=== PATIENT | male | born 1975 | race Caucasian/White ===

== ENCOUNTER → 2021-03-25 15:26 | Outpatient (BNVA) | payer OTHER, SELFPAY | PROVIDERS: Visit Provider Orthopaedic Surgery | DX: M19.012 Primary osteoarthritis, left shoulder (principal) | CPT/HCPCS: 73030 ==

== ENCOUNTER → 2021-10-23 15:25 | Outpatient (BNVA) | payer OTHER, SELFPAY | PROVIDERS: Visit Provider Orthopaedic Surgery | DX: M54.2 Cervicalgia (principal); M19.011 Primary osteoarthritis, right shoulder; M47.22 Other spondylosis with radiculopathy, cervical region | CPT/HCPCS: 72050 ==

== ENCOUNTER 2021-11-20 07:04 | Outpatient (CLI) | payer OTHER, SELFPAY ==
--- NOTE | 2021-11-20 07:15 | MR_ITS ---
WS: [id number] MRI CERVICAL SPINE NONCONTRAST TECHNIQUE: Sagittal T1, T2 and STIR imaging. Axial T2, gradient, and fiesta imaging. CLINICAL INFORMATION: neck pain COMPARISON: None. FINDINGS: Straightening of the normal cervical lordosis. Cord signal is normal. No high-grade central canal kimmy rowing. C2-C3: Moderate LEFT bony foraminal narrowing. Spinal canal is patent. RIGHT foramen is patent. Mild facet arthropathy. Mild disc osteophyte complex eccentric to the LEFT. C3-C4: Mild RIGHT bony foraminal narrowing. Mild facet arthropathy. Spinal canal is patent. C4-C5: Disc osteophytic ridging. Moderate to severe RIGHT and mild LEFT bony foraminal narrowing. Mod erate facet arthropathy. Spinal canal is patent. C5-C6: Disc osteophytic ridging eccentric to the LEFT. Severe LEFT greater than RIGHT bony foraminal narrowing. Moderate facet arthropathy. Mild central canal stenosis. C6-C7: Disc osteophyte complex with endplate ridging. Severe LEFT greater than RIGHT bony foraminal n arrowing. Mild facet arthropathy. Mild central canal stenosis. C7-T1: Mild LEFT and no significant RIGHT foraminal narrowing. Spinal canal is patent. Mild facet art hropathy. Visualized brain stem structures: Normal. Prevertebral soft tissues: Normal. MR/MR cervical spin wo con* [id number] IMPRESSION: 1. Straightening of the normal cervical lordosis. Cord signal is normal. 2. Mild central canal stenosis C5-C6 and C6-C7 due to disc osteophyte complexe s with shallow disc osteophyte protrusions 3. Severe bony foraminal narrowing RIGHT C4-C5, bilateral C5-C6 worse in the L EFT, and bilateral C6-C7 worse in the LEFT. 4. Moderate facet arthropathy C4-C6.
== END 2021-11-20 07:05 | disposition home or self-care (01) ==
LOC: RAD 07:05
PROVIDERS: Visit Provider Orthopaedic Surgery
DX: M47.22 Other spondylosis with radiculopathy, cervical region (principal)
CPT/HCPCS: 72141

== ENCOUNTER 2022-03-11 12:30 | Emergency (ER) | payer OTHER, SELFPAY ==
[2022-03-11 12:35] VITALS: BP 173/117; PULSE 111; RESP 18; TEMP 36.8; O2SAT 95; BMI 28.1
--- NOTE | 2022-03-11 12:40 | ED_ITS ---
HPI - General Adult General: Chief complaint: Abdominal Pain Stated complaint: Abd pain Time Seen by Provider: 03/11/22 12:39 History of Present Illness: Patient is a 46-year-old male with history hypertension who presents emergency room for concerns of lower abdominal pain nausea vomiting and diarrhea since Wednesday. Patient tells me that since Wednesday he has had significant episodes of diarrhea every few minutes. Patient reports liquid stool occasionally dark. Patient denies any melena medic easier. Patient has any urinary complaints or any history of renal colic. Patient de nies any prior abdominal surgery. Patient has me that he has not been able to hold anything down the last few days.. Denies fever but reports chills. Denies any cough, runny nose, sore throat, chest pain, shortness breath palpitation or lightheadedness. He denies any recent antibiotic use, recent travel, or any sick contacts. Onset: 2 days ago Duration:2 days Location: home Severity:moderate Associated symptoms: Reports malaise, nausea and vomiting; Deny chest pain, dyspnea, rash or palpitations Review of Systems Const: Reports: chills and malaise; Denies: fever(s) Eyes: Denies: change in vision ENMT: Denies: mouth pain Card: Denies: chest pain or palpitations Resp: Denies: dyspnea or non-productive cough GI: Reports: abdominal pain (+lower abd pain), nausea, vomiting and diarrhea : Denies: dysuria Musc: Denies: extremity pain Skin/Breast: Denies: rash or new lesions Neuro: Denies: weakness in extremities Psych: Reports: other (Normal mood) Landon/Lymph: Denies: easy bruising [facility] ED PFSH: Medical History (Updated 03/11/22 @ 12:57 by Gris Acuna MD) Hypertension Social History (Updated 03/11/22 @ 12:57 by Gris Acuna MD) Smoking and tobacco status: former smoker Alcohol intake: never Substance/Drug Use: never Marital status: Physical Exam Const: COMMON NORMALS: alert HENMT: COMMON NORMALS: atraumatic HEAD & SCALP: atraumatic MOUTH: moist mucous membranes abnormal Eye: COMMON NORMALS: EOMs intact bilaterally and conjunctivae normal CONJUNCTIVA: Yes conjunctivae normal Neck/C-Spine: COMMON NORMALS: full ROM and supple Resp: COMMON NORMALS: normal respiratory effort and clear to auscultation bilaterally AUSCULTATION: clear to auscultation bilaterally Cardio: RATE: tachycardic GI: COMMON NORMALS: Soft to palpation PALPATION: Yes Soft to palpation OTHER: +mild hypogastric area focal TTP. NO guarding rebound, guarding, rigidity. No CVA tenderness to percussion. Neg Conde/Neg McBurney's point tenderness, no suprabupic tenderness to palpation. Extremity: COMMON NORMALS: full ROM Neuro: SENSORIUM/ORIENTATION: Yes alert MOTOR EXAM: No Abnormal motor strength present and Other motor observations present (no focal motor deficits) Psych: COMMON NORMALS: speech normal SPEECH: Yes normal speech MOOD & AFFECT: Yes euthymic mood Course Vital Signs: Vital signs: Vital Signs Temperature 98.2 F 03/11/22 12:35 Pulse Rate 93 03/11/22 17:37 Respiratory Rate 20 H 03/11/22 17:39 Blood Pressure 135/102 03/11/22 17:00 Pulse Oximetry 94 03/11/22 17:39 Oxygen Delivery Me thod 03/11/22 12:35 MDM - General Adult Medical Decision Making Patient is a 46-year-old male with history hypertension who presents emergency room for concerns of lower abdominal pain nausea vomiting and diarrhea since Wednesday. On exam, patient is noted to mildly tachycardic to the low 100s. Patient is otherwise hemodynamically stable. Patient is noted to have dry mucous membrane with mild lower abdominal tenderness palpation. No guarding or rebound tenderness. Lab work-up showed white count of 7.8. Lab within normal limit. Patient is found to have a mucoid stool that is Hemoccult positive. Patient received IVF reports feeling symptomatically improved. At the present time given hx of diarrhe and abd pain, I have no suspicion for other acute intra-abdominal pathology including SBO, biliary pathology, appendicitis, div erticulitis, or other emergent condition requiring surgery. Patient received ciprofloxacin in the ER given concerns for bacterial causes of diarrhea. Patient will be discharged home on ciprofloxacin. Rx tylenol PRN abd pain, maalox/pepcid PRN dyspepsia, and zofran PRN nausea/vomiting, ciprofloxacin for possible colitis Disposition: Discharge. Patient counseled regarding diagnostic impression, treatment plan. Patient given ED strict return precautions to return for continuation, worsening, or development of new symptoms. Instructed to f/u w/ PCP regarding symptoms today. Patient verbalized understanding. Lab Data : 03/11/22 12:50 03/11/22 14:19 Laboratory Results WBC 7.8 10^3/uL (4.0-10.0) 03/11/22 12:50 RBC 5.05 10^6/uL (4.1-5.3) 03/11/22 12:50 Hgb 16.1 g/dL (11.7-16.6) 03/11/22 12:50 Hct 45.2 % (42.0-52.0) 03/11/22 12:50 MCV 89.5 fl (80-94) 03/11/22 12:50 MCH 31.9 pg (28.0-34.0) 03/11/22 12:50 MCHC 35.6 g/dL (30.0-36.0) 03/11/22 12:50 RDW 12.0 % (12.1-15.1) L 03/11/22 12:50 Plt Count 157 10^3/cmm (130-400) 03/11/22 12:50 MPV 11.3 fL (7.4-10.4) H 03/11/22 12:50 Total Counted 100 (0-100) 03/11/22 12:50 Atypical Lymphs % 1.0 % (0-5) 03/11/22 12:50 Absolute Neutrophils 5.7 10^3/cmm (1.4-6.5) 03/11/22 12:50 Segmented Neutrophils 62 % 03/11/22 12:50 Abs Segm Neuts (Man) 4.8 10/cmm (1.6-7.1) 03/11/22 12:50 Band Neutrophils 11.0 % 03/11/22 12:50 Abs Band Neuts (Man) 0.9 10^3/cmm (0.0-1.2) 03/11/22 12:50 Absolute Lymphocytes 1.6 10^3/cmm (1.2-3.4) 03/11/22 12:50 Lymphocytes (Manual) 19 % 03/11/22 12:50 Monocytes (Manual) 6.0 % 03/11/22 12:50 Absolute Monocytes 0.5 10^3/cmm (0.1-0.6) 03/11/22 12:50 Eosinophils (Manual) 1 % 03/11/22 12:50 Absolute Eosinophils 0.0 10^3/cmm (0.0-0.7) 03/11/22 12:50 Basophils (Manual) 0.0 % 03/11/22 12:50 Absolute Basophils 0.0 10^3/cmm (0.0-0.2) 03/11/22 12:50 Platelet Estimate Normal (Normal) 03/11/22 12:50 Sodium 133 mmol/L (136-145) L 03/11/22 14:19 Potassium 3.5 mmol/L (3.5-5.1) 03/11/22 14:19 Chloride 97 mmol/L (98-107) L 03/11/22 14:19 Carbon Dioxide 23 mmol/L (22-29) 03/11/22 14:19 Anion Gap 16.5 (5-19) 03/11/22 14:19 BUN 10 mg/dL (6-20) 03/11/22 14:19 Creatinine 0.7 mg/dL (0.7-1.2) 03/11/22 14:19 GFR Calculation 120.4 mL/min (90-130) 03/11/22 14:19 Glucose 292 mg/dL (65-115) H 03/11/22 14:19 Calculated Osmolality 286 mOsm/kg (285-295) 03/11/22 14:19 Calcium 8.3 mg/dL (8.5-10.5) L 03/11/22 14:19 Total Bilirubin 1.2 mg/dL (0.15-1.2) 03/11/22 14:19 AST 11 U/L (0-40) 03/11/22 14:19 ALT 14 U/L (0-41) 03/11/22 14:19 Alkaline Phosphatase 76 U/L (40-130) 03/11/22 14:19 Total Protein 6.2 g/dL (6.6-8.7) L 03/11/22 14:19 Albumin 3.7 g/dL (3.5-5.2) 03/11/22 14:19 Globulin 2.5 g/dL (1.3-4.6) 03/11/22 14:19 Lipase 32 U/L (13-60) 03/11/22 14:19 Urine Color Yellow (Yellow) 03/11/22 13:26 Urine Appearance Clear (CLEAR) 03/11/22 13:26 Urine pH 5 (5-7) 03/11/22 13:26 Ur Specific [place] 1.010 (1.005-1.030) 03/11/22 13:26 Urine Protein Trace (Negative) 03/11/22 13:26 Urine Glucose (UA) 4+ (Normal) H 03/11/22 13:26 Urine Ketones 1+ (Negative) H 03/11/22 13:26 Urine Blood Trace (Negative) H 03/11/22 13:26 Urine Nitrate Negative (Negative) 03/11/22 13:26 Urine Bilirubin Neg (Negative) 03/11/22 13:26 Urine Urobilinogen Norm mg/dL (Negative) 03/11/22 13:26 Ur Leukocyte Esterase Negative (Negative) 03/11/22 13:26 Urine RBC None /hpf (0-2) 03/11/22 13:26 Urine WBC 5-10 /hpf (0-5) H 03/11/22 13:26 Ur Squamous Epith Cells None /hpf (0-5) 03/11/22 13:26 Amorphous Sediment Not Reportable 03/11/22 13:26 Urine Bacteria Trace /hpf (NONE) 03/11/22 13:26 Discharge Plan Discharge Patient Disposition: Home Clinical Impression: Abdominal pain, Diarrhea, Nausea & vomiting Condition: Stable Prescriptions: New acetaminophen 500 mg tablet 500 mg PO Q6H PRN (Reason: pain) 5 Days Qty: 20 0RF Pepcid 20 mg tablet 20 mg PO BID PRN (Reason: abdominal pain) 10 Days Qty: 20 0RF ondansetron 4 mg tablet,disintegrating 4 mg PO TID PRN (Reason: nausea and vomiting) 4 Days Qty: 12 0RF Maalox Advanced 1,000-60 mg tablet,chewable 1 tab PO TID PRN (Reason: abdominal pain) 7 Days Qty: 21 0RF ciprofloxacin HCl 500 mg tablet 500 mg PO Q12H 5 Days Qty: 10 0RF No Action meloxicam 15 mg tablet 15 mg PO DAILY Qty: 30 0RF dexamethasone sodium phosphate 4 mg/mL solution 10 mg Infiltration ONCE Qty: 1 0RF meloxicam [Mobic] 15 mg tablet 15 mg PO DAILY esomeprazole magnesium [Nexium] 20 mg capsule,delayed release(DR/EC) 20 mg PO DAILY valacyclovir 500 mg tablet See Rx Instructions .ROUTE .COMPLEX Qty: 14 2RF Rx Instructions: May use 2 tablets on day one, then one tablet daily for the next 2 consecutive days for a flare. no more than four tab in a 12 hour period; lisinopril 10 mg tablet 10 mg PO DAILY Qty: 90 3RF amlodipine 5 mg tablet 5 mg PO DAILY Qty: 90 3RF Discharge Orders: Discharge ED (Routine); Ordered 03/11/22 Ordered By: Gris Acuna Referrals: Zachary Curran DO [Primary Care Provider] - Discharge Diet: Advance as tolerated Discharge Activity: Increase activity as tolerated Patient Instructions: Acute Diarrhea (ED), Abdominal Pain (ED) Activity Restrictions/Additional Instructions: Please come back if you have any worsening abdominal pain, fever or chills, nausea or vomiting, diarrhea, blood in the stool, inability hold down liquid or solids, or any new concerning complaints. Please take your antibiotics as instructed. Watch out for signs of skin changes/redness, mouth redeness or swelling, nausea/vomiting, diarrhea, blood in the urine or any new or concering complaints. Coding Level of Care Code ED Offset Label Rewinder for Latosha Fwd Exam Comprehensive
[2022-03-11] MEDS: sodium chloride 0.9% 500 ML IV (12:49)
--- NOTE | 2022-03-11 12:54 | ECG_ITS ---
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 Measurements Intervals [place] Rate: 90 P: 16 CO: 107 QRS: -31 QRSD: 112 T: 77 QT: 376 QTc: 461 Interpretive Statements SINUS RHYTHM WITH SHORT CO INTERVAL LEFT AXIS DEVIATION [QRS AXIS < -30] INCOMPLETE RIGHT BUNDLE BRANCH BLOCK [90+ ms QRS DURATION, TERMINAL R IN V1/V2, 40+ ms S IN I/aVL/V4/V5/V6] PROBABLE LATERAL MYOCARDIAL INFARCTION , OF INDETERMINATE AGE [35 ms Q WAVE IN I/aVL/V5/V6] No previous ECG available for comparison Electronically Signed On 03-11-2022 20:54:35 CDT by Lakshmi Trujillo M.D. [id number]
[2022-03-11 13:11] LABS: Hematocrit 45.2 % (42.0-52.0); Hemoglobin 16.1 g/dL (11.7-16.6); Mean Corpuscular HGB Conc 35.6 g/dL (30.0-36.0); Mean Corpuscular Hemoglobin 31.9 pg (28.0-34.0); Mean Corpuscular Volume 89.5 fl (80-94); Mean Platelet Volume 11.3 fL (7.4-10.4); Platelet Count 157 10^3/cmm (130-400); Red Blood Count 5.05 10^6/uL (4.1-5.3); White Blood Count 7.8 10^3/uL (4.0-10.0)
[2022-03-11] MEDS: sodium chloride 0.9% 1,000 ML 999 ML IV (13:36)
[2022-03-11] MEDS: ondansetron 2 mg/ML SDV 2 mL 4 MG IVP (13:40)
[2022-03-11 13:43] VITALS: RESP 16; O2SAT 95
[2022-03-11] MEDS: morphine 4 mg/mL SDV 1 mL IVP ×2 (13:43→17:39)
[2022-03-11 14:16] LABS: Add Urine Microscopic? YES; Bilirubin Urine Neg (Negative); Blood Urine Trace (Negative); Glucose Urine UA 4+ (Normal); Ketones Urine 1+ (Negative); Leukocyte Esterase Urine Negative (Negative); Nitrate Urine Negative (Negative); Protein Urine Trace (Negative); Urine Appearance Clear (CLEAR); Urine Color Yellow (Yellow); Urobilinogen Urine Norm (Negative); pH Urine 5 (5-7)
[2022-03-11 14:17] LABS: Add Urine Culture? No; Bacteria Urine TRACE /hpf
[2022-03-11 14:25] LABS: Absolute Segmented Neutrophil 4.8 10/cmm (1.6-7.1); Band Neutrophils Absolute 0.9 10^3/cmm (0.0-1.2); Eosinophils 1 %; Lymphocytes 19 %; Lymphocytes Absolute 1.6 10^3/cmm (1.2-3.4); Monocytes Absolute 0.5 10^3/cmm (0.1-0.6); Segmented Neutrophils 62 %; Total Cells Counted 100 (0-100)
[2022-03-11 14:26] LABS: Absolute Neutrophil 5.7 10^3/cmm (1.4-6.5); Platelet Estimate Normal (Normal)
[2022-03-11 15:02] LABS: Alanine Aminotransferase 14 U/L (0-41); Albumin Level 3.7 g/dL (3.5-5.2); Alkaline Phosphatase 76 U/L (40-130); Anion Gap 16.5 (5-19); Aspartate Amino Transferase 11 U/L (0-40); Blood Urea Nitrogen 10 mg/dL (6-20); Calcium 8.3 mg/dL (8.5-10.5); Carbon Dioxide 23 mmol/L (22-29); Chloride 97 mmol/L (98-107); Globulin 2.5 g/dL (1.3-4.6); Glomerular Filtration Rate 120.4 mL/min (90-130); Glucose 292 mg/dL (65-115); Lipase 32 U/L (13-60); Osmolality Calculated 286 mOsm/kg (285-295); Potassium 3.5 mmol/L (3.5-5.1); Sodium 133 mmol/L (136-145); Total Bilirubin 1.2 mg/dL (0.15-1.2); Total Protein 6.2 g/dL (6.6-8.7)
[2022-03-11 17:00] VITALS: BP 135/102
[2022-03-11 17:37] VITALS: PULSE 93; O2SAT 94
[2022-03-11 17:39] VITALS: RESP 20; O2SAT 94
[2022-03-11] MEDS: lidocaine 2% viscous 15 ML, aluminum-mag hydrox-simethicon 30 ML, sucralfate oral liq 1 GM PO (18:17)
[2022-03-11] MEDS: ciprofloxacin 500 mg Tablet PO (18:56)
[2022-03-11 18:58] VITALS: BP 155/115; PULSE 86; RESP 17; O2SAT 95
== END 2022-03-11 19:19 | disposition home or self-care (01) ==
PROVIDERS: Emergency Provider Emergency Medicine; PCP Family Medicine
DX: R10.9 Unspecified abdominal pain (principal); R11.2 Nausea with vomiting, unspecified; R19.7 Diarrhea, unspecified; I10 Essential (primary) hypertension; Z87.891 Personal history of nicotine dependence
CPT/HCPCS: 80053; 81001; 82274; 83630; 83690; 85007; 85027; 87493; 87506; 93005; 96374; 96375; 96376; 99285; J2270; J2405; J7030; J7040

== ENCOUNTER → 2022-03-16 15:04 | Outpatient (BNVA) | payer OTHER, SELFPAY | PROVIDERS: PCP Family Medicine; Visit Provider Family Medicine | DX: A04.5 Campylobacter enteritis (principal); R73.9 Hyperglycemia, unspecified | CPT/HCPCS: 80053; 80061; 83036 ==

== ENCOUNTER → 2022-10-21 08:21 | Outpatient (BNVA) | payer OTHER, SELFPAY | PROVIDERS: PCP Family Medicine; Visit Provider Family Medicine | DX: E11.9 Type 2 diabetes mellitus without complications (principal); R73.9 Hyperglycemia, unspecified | CPT/HCPCS: 80053; 80061; 82607; 83036 ==

== ENCOUNTER → 2023-02-04 09:13 | Outpatient (BNVA) | payer OTHER, SELFPAY | PROVIDERS: PCP Family Medicine; Visit Provider Family Medicine | DX: E11.9 Type 2 diabetes mellitus without complications (principal); R73.9 Hyperglycemia, unspecified; F41.9 Anxiety disorder, unspecified; K64.9 Unspecified hemorrhoids; Z13.6 Encounter for screening for cardiovascular disorders; E03.9 Hypothyroidism, unspecified | CPT/HCPCS: 80053; 80061; 83036; 84443; 85025 ==

== ENCOUNTER 2023-06-25 15:47 | Outpatient (CLI) | payer OTHER, SELFPAY ==
--- NOTE | 2023-06-25 16:00 | MR_ITS ---
WS: [id number] MRI CERVICAL SPINE NONCONTRAST TECHNIQUE: Sagittal T1, T2 and STIR imaging. Axial T2, gradient, and fiesta imaging. CLINICAL INFORMATION: M47.22 - Other spondylosis with radiculopathy, cervical r... COMPARISON: MRI 11/20/2021 FINDINGS: Straightening of the normal cervical lordosis with slight reversal. Cord signal is normal. No high-gr laly central canal stenosis. C2-C3: Mild facet arthropathy. Mild LEFT greater than RIGHT bony foraminal narrowing. Spinal canal is patent. C3-C4: No significant disc bulging. Mild osteophytic ridging. Mild facet arthropathy. Moderate RIGHT and mild LEFT bony foraminal narrowing. This is unchanged. C4-C5: Mild disc osteophytic ridging. Moderate RIGHT and no significant LEFT foraminal narrowing. Mil d facet arthropathy. This is unchanged. C5-C6: Disc osteophyte complex with endplate ridging. Mild central canal stenosis. Slight contact of the LEFT ventral cervical cord. Severe LEFT and moderate RIGHT bony foraminal narrowing. Moderate fac et arthropathy. Central canal stenosis and foraminal narrowing stable compared to previous C6-C7: Mild disc bulge with a tiny central protrusion. Mild central canal stenosis. Severe LEFT and m oderate RIGHT bony foraminal narrowing unchanged from previous. Moderate facet arthropathy and uncove rtebral joint hypertrophy. C7-T1: Grade 1 anterolisthesis C7 on T1. Moderate LEFT and no significant RIGHT bony foraminal narrow ing. This is progressed compared to previous. Edema in the LEFT C7 and T1 facet likely degenerative o r inflammatory. Grade 1 anterolisthesis C7 on T1 progressed compared to previous. Visualized brain stem structures: Normal. Prevertebral soft tissues: Normal. IMPRESSION: 1. Straightening with slight reversal of the normal cervical lordosis. Cord signal is normal. 2. Stable mild central canal stenosis C5-C6 and C6-C7. 3. Grade 1 anterolisthesis C7 on T1 is new compared to previous with moderate LEFT bony foraminal na rrowing. Recommend correlation for LEFT C8 nerve root symptoms. LEFT facet edema with a small effusio n likely degenerative or inflammatory. 4. Severe LEFT C5-C6 and LEFT C6-7 bony foraminal narrowing unchanged. 5. Moderate RIGHT C4-5, RIGHT C5-C6, and RIGHT C6-7 bony foraminal narrowing unchanged.
== END 2023-06-25 15:48 | disposition home or self-care (01) ==
LOC: RAD 15:47
PROVIDERS: PCP Family Medicine; Visit Provider Anesthesiology Pain Medicine
DX: M47.22 Other spondylosis with radiculopathy, cervical region (principal); M48.03 Spinal stenosis, cervicothoracic region; M53.82 Other specified dorsopathies, cervical region
CPT/HCPCS: 72141

== ENCOUNTER → 2024-03-30 13:52 | Outpatient (BNVA) | payer OTHER, SELFPAY | PROVIDERS: PCP Family Medicine; Visit Provider Family Medicine | DX: R73.9 Hyperglycemia, unspecified (principal); E11.9 Type 2 diabetes mellitus without complications; K22.70 Barrett's esophagus without dysplasia; K63.5 Polyp of colon; M25.519 Pain in unspecified shoulder; M47.22 Other spondylosis with radiculopathy, cervical region; E03.9 Hypothyroidism, unspecified | CPT/HCPCS: 80053; 80061; 83036; 85025; 86038; 86140 ==

== ENCOUNTER 2024-08-01 08:30 | Day surgery (SDC) | payer OTHER, SELFPAY ==
[2024-08-01 09:01] VITALS: BP 154/107; PULSE 83; RESP 16; TEMP 36.3; O2SAT 97; BMI 28.8
[2024-08-01] MEDS: sodium chloride 0.9% 500 ML 15 ML IV (09:07)
--- NOTE | 2024-08-01 09:12 | P.ANESASSM_ITS ---
Pre-Anesthetic Assessment Height/Weight: Height 1.88 m Weight 102.058 kg Temp Pulse Resp BP Pulse Ox O2 Del Method 97.4 F L 83 16 154/107 97 Room Air 08/01/24 09:01 08/01/24 09:01 08/01/24 09:01 08/01/24 09:01 08/01/24 09:01 08/01/24 09:01 Operation Date: 08/01/24 09:45 Proposed Procedures p EGD Dilation W/ Balloon 57599, 64173, G0105, Z12.11, R12, K22.70(Not Applicable) - Eliseo Lopes MD s Colonoscopy(Not Applicable) - Eliseo Lopes MD Familial anesthetic complications: none Was Beta Bradley taken within 24 hours: N/A Was Clonidine taken within 24 hours: N/A Last intake: Intake Last Liquid Date 07/31/24 Last Liquid Time 20:00 Last Solid Date 07/30/24 Last Solid Time 19:30 Social Alcohol ( couple beers nd a mixed drink before bed ) and No tobacco Exam alert and oriented x 3 Airway Submandibular: within normal limits Cervical ROM: within normal limits Mallampati: Class II Dentition: full Pulmonary None reported CV/HEM Hypertension None reported Hepatic None reported GI Gastroesophageal Reflux Disease Metabolic Diabetes Mellitus [facility] None reported Neuropsych None reported Anesthetic Plan ASA status: 3 Anesthesia: Anesthesia Evaluation and MAC Medications/Allergies Home Medications ?Medication ?Instructions ?Recorded ?Confirmed ?Last Taken ?Type esomeprazole magnesium 20 mg 20 mg PO DAILY #90 caps 1 07/12/23 08/01/24 07/31/24 Rx capsule,delayed release (Nexium) semaglutide 0.25 mg or 0.5 mg (2 0.5 mg (0.736 mL) SUB CUT .qweekly 06/13/24 08/01/24 07/23/24 Rx mg/3 mL) subcutaneous pen injector DM #3 mL (Ozempic) amlodipine 5 mg tablet 5 mg PO DAILY 07/27/2408/0107/31/24 History fluoxetine 20 mg capsule (Prozac) 20 mg PO DAILY anxie ty 07/27/24 08/01/24 07/31/24 History hydrocortisone acetate 25 mg 25 mg TX BID PRN hemorrho ids 07/27/24 07/27/24 Unknown History rectal suppository lisinopril 20 mg tablet 20 mg PO DAILY 07/27/2407/0907/31/24 History meloxicam 15 mg tablet 15 mg PO DAILY 07/27/2407/0907/25/24 History temazepam 15 mg capsule 15 mg PO .qhs PRN sleep/stre ss 07/27/24 08/01/24 Unknown History valacyclovir 500 mg tablet See Rx Instructions .Route 07/27/24 08/01/24 Unknown History .COMPLEX PRN flare Allergies Allergy/AdvReac Type Severity Reaction Status Date / Time clindamycin Allergy ALGY-Rash Verified 08/01/24 08:58 Current Medications Generic Name Dose Route Start Last Admin Trade Name Freq PRN Reason Stop Dose Admin Sodium Chloride 500 mls @ 15 mls/hr 08/01/24 08:55 08/01/24 09:07 Sodium Chloride 0.9% IV 08/02/24 08:54 15 mls/hr .Q24H PRN Administration COLONOSCOPY FLUIDS PFSH Anesthesia Medical History (Updated 06/20/24 @ 12:57 by Zachary Curran DO) Hypertension Family History (Updated 06/20/24 @ 10:21 by LASHA Awad) Father Colon cancer Social History Smoking and tobacco/nicotine status: former use of tobacco/nicotine Alcohol intake: never Substance/Drug Use: never Marital status: Data Anesthesia Cardiac Studies: No Data to Display
--- NOTE | 2024-08-01 09:18 | W.PM.OPSFHP ---
Same Day Surgery H&P Indication for Procedure/HPI DATE OF PROCEDURE: August 01, 2024 CHIEF COMPLAINT/INDICATIONFOR SURGICAL PROCEDURE: Barrets and diagnostic colonoscopy PREOP DIAGNOSIS: barrets and diagnostic colonoscopy PLANNED PROCEDURE: Operation Date: 08/01/24 09:45 Proposed Procedures p EGD Dilation W/ Balloon 74791, 37845, G0105, Z12.11, R12, K22.70(Not Applicable) - Eliseo Lopes MD s Colonoscopy(Not Applicable) - Eliseo Lopes MD Medications/Allergies* Home Medications ?Medication ?Instructions ?Recorded ?Confirmed ?Type amlodipine 5 mg tablet 5 mg PO DAILY 07/27/24 08/01/24 History fluoxetine 20 mg capsule (Prozac) 20 mg PO DAILY anxiety 07/27/24 08/01/24 History hydrocortisone acetate 25 mg 25 mg CO BID PRN hemorrhoids 07/27/24 07/27/24 History rectal suppository lisinopril 20 mg tablet 20 mg PO DAILY 07/27/24 08/01/24 History meloxicam 15 mg tablet 15 mg PO DAILY 07/27/24 08/01/24 History temazepam 15 mg capsule 15 mg PO .qhs PRN sleep/stress 07/27/24 08/01/24 History valacyclovir 500 mg tablet See Rx Instructions .Route 07/27/24 08/01/24 History .COMPLEX PRN flare Allergies/Adverse Reactions Allergy/AdvReac Type Severity Reaction Status Date / Time clindamycin Allergy ALGY-Rash Verified 08/01/24 08:58 Current Medications: Generic Name Dose Route Start Last Admin Trade Name Freq PRN Reason Stop Dose Admin Sodium Chloride 500 mls @ 15 mls/hr 08/01/24 08:55 08/01/24 09:07 Sodium Chloride 0.9% IV 08/02/24 08:54 15 mls/hr .Q24H PRN Administration COLONOSCOPY FLUIDS Pertinent History/Comorbid Conditions* Medical History (Updated 06/20/24 @ 12:57 by Zachary Curran DO) Hypertension Family History (Updated 06/20/24 @ 10:21 by LASHA Awad) Colon cancer Father Social History Smoking and tobacco/nicotine status: former use of tobacco/nicotine Alcohol intake: never Substance/Drug Use: never Marital status: Pertinent Exam Findings alert, oriented x 3, clear to auscultation bilaterally, regular rate & rhythm and procedure specific exam findings abdomen soft, nt, nd Recommendations Surgery/Procedure today Coding Level of Care Code Acute Code for Chg Fwd
[2024-08-01 09:44] VITALS: BP 126/91; PULSE 87; RESP 18; TEMP 36.1; O2SAT 97
--- NOTE | 2024-08-01 09:45 | ANE.PACU2 ---
Inpatient post-anesthesia follow up: Airway intact: Yes Vital signs: Temperature 97 F Pulse Rate 87 Respiratory Rate 18 Blood Pressure 126/91 Pulse Oximetry 97 Oxygen Delivery Me thod Room Air Oxygen Flow Rate Fraction of Inspir ed Oxygen Hydration adequate: Yes Nausea and vomiting: No Pain level: 1 Mental status: Baseline
== END 2024-08-01 10:15 | disposition home or self-care (01) ==
PROVIDERS: PCP Family Medicine; Visit Provider Student in an Organized Health Care Education/Training Program
PROC: 0DJD8ZZ Inspection of Lower Intestinal Tract, Via Natural or Artificial Opening Endoscopic (ICD-10-PCS; CPT 45378; 2024-08-01 09:45)
DX: Z12.11 Encounter for screening for malignant neoplasm of colon (principal); K21.00 Gastro-esophageal reflux disease with esophagitis, without bleeding; I10 Essential (primary) hypertension; Z79.899 Other long term (current) drug therapy; Z88.1 Allergy status to other antibiotic agents; Z80.0 Family history of malignant neoplasm of digestive organs; Z87.891 Personal history of nicotine dependence; K29.50 Unspecified chronic gastritis without bleeding
CPT/HCPCS: 43239; 45378; 88305; J2704; J7040

== ENCOUNTER → 2024-09-19 14:45 | Outpatient (BNVA) | payer OTHER, SELFPAY | PROVIDERS: PCP Family Medicine; Visit Provider Family Medicine | DX: I10 Essential (primary) hypertension (principal); E11.9 Type 2 diabetes mellitus without complications | CPT/HCPCS: 80053; 80061; 83036 ==

== ENCOUNTER → 2024-12-27 10:03 | Outpatient (BNVA) | payer OTHER, SELFPAY | PROVIDERS: PCP Family Medicine; Visit Provider Family Medicine | DX: K52.9 Noninfective gastroenteritis and colitis, unspecified (principal); R11.10 Vomiting, unspecified | CPT/HCPCS: 80053; 85025 ==

== ENCOUNTER → 2025-02-07 08:07 | Outpatient (BNVA) | payer OTHER, SELFPAY | PROVIDERS: PCP Family Medicine; Visit Provider Physician Assistant | DX: G56.03 Carpal tunnel syndrome, bilateral upper limbs (principal); G56.21 Lesion of ulnar nerve, right upper limb | CPT/HCPCS: 73130 ==

== ENCOUNTER → 2025-05-21 12:23 | Outpatient (BNVA) | payer OTHER, SELFPAY | PROVIDERS: PCP Family Medicine; Visit Provider Family Medicine | DX: I10 Essential (primary) hypertension (principal); K22.70 Barrett's esophagus without dysplasia; M47.22 Other spondylosis with radiculopathy, cervical region; E11.65 Type 2 diabetes mellitus with hyperglycemia | CPT/HCPCS: 80053; 80061; 83036; 83525; 85025 ==